=== PATIENT | female | born 1945 | race Caucasian/White ===

== ENCOUNTER 2024-07-09 15:33 | Emergency (ER) | payer MEDICARE, SELFPAY ==
--- NOTE | ~2024-07-09 | XR_ITS ---
CLINICAL HISTORY: cough, CP 2 view chest x-ray Comparison: None Findings: Heart size normal. ICD electrodes are in satisfactory position. Pulmonary vasculature is within limits of normal. No pleural fluid. No acute fracture. Impression: The lungs are clear. This document has been electronically signed by: Redd Vincent MD on 07/09/2024 17:23:48
--- NOTE | 2024-07-09 15:37 | ECG_ITS ---
Test Reason : CP Blood Pressure : */* mmHG Vent. Rate : 62 BPM Atrial Rate : 62 BPM P-R Int : * ms QRS Dur : 138 ms QT Int : 492 ms P-R-T Axes : 118 121 66 degrees QTcB Int : 499 ms Atrial-paced rhythm Abnormal ECG When compared with ECG of 23-Nov-2003 07:21, Electronic atrial pacemaker has replaced Sinus rhythm Referred By: Generic ED Physician Electronically Signed By: RIMA ROBLEDO
[2024-07-09 16:00] VITALS: BP 107/51; PULSE 66; RESP 16; TEMP 37.3; O2SAT 99; BMI 19.2
--- NOTE | 2024-07-09 16:00 | ED_ITS ---
HPI - Chest Pain General Chief Complaint: Chest Pain Stated Complaint: CP sore throat, dirfficulty breathing Time Seen by Provider: 07/09/24 19:16 Source: patient, RN notes reviewed and old records reviewed Mode of arrival: wheelchair History of Present Illness ED Provider: Mary Jane Long PA-C HPI narrative: 78-year-old female with a past medical history pacemaker, presenting to the ED complaining of chest pain, SOB, cough, headache, sore throat, myalgias x 3 days. Admits to sick contacts at home. States chest pain is nonradiating. Denies fever, chills, pedal edema, abdominal pain, nausea/vomiting Related Data Allergies Allergy/AdvReac Type Severity Reaction Status Date / Time aspirin [ASPIRIN] Allergy Unknown UNKNOWN Verified 07/09/24 16:03 Review of Systems 2 Review of Systems: Yes all other systems are reviewed and are negative Constitutional: Constitutional: Reports as per [facility] Past Medical History Attestation statement: The following information was validated with the patient. Source: old records reviewed Physical Exam 2 Vital Signs: Vital Signs: Last Vital Signs Temp 99.2 F 07/09/24 16:00 Pulse 66 07/09/24 16:00 Resp 16 07/09/24 16:00 BP 107/51 L 07/09/24 16:00 Pulse Ox 99 07/09/24 16:00 O2 Del Method Room Air 07/09/24 16:00 BMI result Body Mass Index 19.2 Const: General: cooperative, healthy appearing and no acute distress O rientation/consciousness: patient oriented x3 Limitations: no limitations HEENT: Head: Yes normal to inspection and Yes atraumatic Ears: hearing grossly normal bilaterally and external ears normal General nose exam: Normal external nose present Face and sinus: Yes normal facial exam Mouth: no drooling Throat: Yes uvula midline, No peritonsillar mass, Yes posterior oropharynx abnormal (Mild erythema), No uvula laterally displaced and No uvular edema Eyes: General: appearance normal, both eyes and all related structures EOM: EOMs intact bilaterally Neck: Neck: Yes normal visual inspection and Yes no meningeal signs Resp: Effort & Inspection: normal respiratory effort and no respiratory distress Auscultation: clear to auscultation bilaterally, no crackles, no rales, no rhonchi and no wheezes Cardio: Rate: regular rate Heart sounds: S1 normal heart sound present and S2 normal heart sound present Skin: Rashes: no rashes Wounds: no wounds Neuro: General: patient oriented x3, tone normal and no meningeal signs C ranial nerves: Yes CN's II-XII intact bilaterally Gait exam (Neuro): Normal gait present Extrem: General: Yes normal to inspection Course Course Course Narrative: This is a Rapid Medical Exam performed in triage by Mary Jane Long PA-C. Full HPI, ROS and PE to be performed by primary ED provider. 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 Non- radiating CP. + sick contact PE: Talking in complete sentences, lungs CTA. Mild posterior oropharyngeal erythema. Uvula midline. Plan: EKG, labs, SARs, CXR -1916--labs reassuring. Troponin without significant rise, mi unlikely -viral testing and rapid strep negative -CXR unremarkable Results discussed with patient including worrisome signs and symptoms and strict return precautions, and when to return to the emergency department. They verbalized understanding and feel safe for discharge at this time. Medical Decision Making Medical Decision Making [facility] Narrative: 78-year-old female with a past medical history pacemaker, presenting to the ED complaining of chest pain, SOB, cough, headache, sore throat, myalgias x 3 days. On exam vital signs stable, NAD, nontoxic appearing, lungs CTA, talking in complete sentences, mild posterior oropharyngeal erythema, uvula midline. Talking in complete sentences. Concern for viral illness vs ACS vs pneumonia vs bronchitis. Low suspicion for PE/CHF Plan: EKG, labs, viral testing, CXR Please refer to course for remaining clinical decision making, interpretation of labs/imaging results, and discussions with consultants and/or family members. Differential Diagnosis Differential Diagnoses: The differential diagnosis associated with the presentation includes As above Admission/Observation Consideration of admission/observation: Escalation of care including admission/observation considered Lab Data [facility] Lab Attestation statement: I reviewed the patient's lab results. 07/09/24 16:25 07/09/24 16:25 Labs: Lab Results 07/09/24 07/09/24 07/09/24 Range/Units 16:25 16:26 18:43 WBC 5.1 (4.8-10.8) X10*3/uL RBC 3.58 L (4.20-5.50) X10*6/uL Hgb 10.3 L (12.0-16.0) g/dl Hct 30.1 L (37.0-47.0) % MCV 84.1 (80.0-98.0) fL MCH 28.8 (27.0-33.0) pg MCHC 34.2 (31.0-35.0) g/dl RDW 12.6 (11.0-16.0) % Plt Count 139 L (160-400) X10*3/uL MPV 10.0 (9.4-12.3) fL Immature Gran % (Auto) 0.2 (0.0-0.4) % Neut % (Auto) 86.1 H (45-73) % Lymph % (Auto) 9.2 L (20-40) % Holmes % (Auto) 4.1 (2-11) % Eos % (Auto) 0.2 (0-4) % Baso % (Auto) 0.2 (0-2) % Lymph # (Auto) 0.5 L (1.2-4.9) X10*3/uL Holmes # (Auto) 0.2 (0.1-1.2) X10*3/uL Eos # (Auto) 0.0 (0.0-0.4) X10*3/uL Baso # (Auto) 0.0 (0.0-0.2) X10*3/uL Abs Immat Gran (auto) 0.01 (0.00-0.03) X10*3/uL Absolute Neuts (auto) 4.4 (2.0-8.3) x10*3/uL Absolute Nucleated RBC 0.000 (0.0-0.012) X10*3/uL Nucleated RBC % (auto) 0.0 (0.0-0.2) /100WBC Sodium 133 L (135-145) mmol/L Potassium 4.8 (3.3-5.1) mmol/L Chloride 98 (96-108) mmol/L Carbon Dioxide 27 (22-29) mmol/L Anion Gap 13 (12-20) BUN 21 H (9-16) mg/dL Creatinine 0.83 (0.5-1.4) mg/dL Estim Creat Clear Calc 43.4 Estimated GFR > 60 Random Glucose 284 H (60-115) mg/dL Calcium 9.2 (8.4-10.2) mg/dL Troponin I High Sens 11.4 10.7 (<3.5-17.0) ng/L Influenza Type A (PCR) NEGATIVE (Negative) Influenza Type B (PCR) NEGATIVE (Negative) RSV RNA Qual (PCR) NEGATIVE (Negative) SARS-CoV-2 RNA (RT-PCR) NEGATIVE (Negative) S. pyogenes GrpA SHEILA Negative (Negative) Independent Interpretation I performed an independent interpretation of an: EKG (My interpretation EKG ventricular paced at a rate of 62. QRS 138. No STEMI. ) and Plain X-Ray Radiology Impression Discussion of test interpretation with radiology: I have reviewed the radiologist's reading. Independent Historian Clinical information obtained from an independent historian. History obtained from or confirmed by: Other External Record Review External record reviewed: Inpatient record, Office record, Outpatient record, Prior outpatient labs, Prior outpatient radiology, Primary care record and Outside ED record Tests considered The following testing was considered but not selected: As above Prescription Management I considered prescription management with: Antibiotic Chronic Conditions Patient?s care impacted by: Other Social Determinants Patient?s care significantly limited by Social Determinants of Health including: Other Social Determinant of Health Discharge Plan Discharge Clinical Impression: Acute viral syndrome Patient Disposition: Home, Self-Care Instructions: Viral Syndrome (ED) Additional Instructions: You have a virus Your blood work, x-ray, and viral testing is reassuring Have close follow-up with your doctor No antibiotics are indicated at this time Make sure you are staying hydrated. Drink plenty of fluids. Rest Alternate Tylenol and Motrin at home as needed for body aches and fever Follow-up with your doctor. If symptoms persist or worsen return to the emergency department *If you are a child & not tolerating liquid or urinating for more than 6 hours, or fevers are uncontrolled with medications at home, return to the emergency department* Referrals: Physician,Unknown J [Primary Care Provider] - 5 days Print Language: Macedonian
[2024-07-09 16:33] LABS: MANUAL DIFF FLAG NO
[2024-07-09 16:36] LABS: Basophils Percent Auto 0.2 % (0-2); Eosinophils Percent Auto 0.2 % (0-4); Hematocrit 30.1 % (37.0-47.0); Hemoglobin 10.3 g/dl (12.0-16.0); Imm Gran Abs Auto 0.01 X10*3/uL (0.00-0.03); Imm Gran Pct Auto 0.2 % (0.0-0.4); Lymphocytes Absolute Auto 0.5 X10*3/uL (1.2-4.9); Lymphocytes Percent Auto 9.2 % (20-40); Mean Corpuscular HGB Conc 34.2 g/dl (31.0-35.0); Mean Corpuscular Hemoglobin 28.8 pg (27.0-33.0); Mean Corpuscular Volume 84.1 fL (80.0-98.0); Monocytes Absolute Auto 0.2 X10*3/uL (0.1-1.2); Monocytes Percent Auto 4.1 % (2-11); Neutrophils Absolute Auto 4.4 x10*3/uL (2.0-8.3); Neutrophils Percent Auto 86.1 % (45-73); Platelet Count 139 X10*3/uL (160-400); Red Blood Count 3.58 X10*6/uL (4.20-5.50); Red Cell Distribution Width 12.6 % (11.0-16.0); White Blood Count 5.1 X10*3/uL (4.8-10.8)
[2024-07-09 16:43] LABS: IDNOW Serial# 55D5AD1C
[2024-07-09 16:44] LABS: Strep A Nucleic Acid Negative (Negative)
[2024-07-09 16:47] LABS: Anion Gap 13 (12-20); Blood Urea Nitrogen 21 mg/dL (9-16); Calcium 9.2 mg/dL (8.4-10.2); Carbon Dioxide 27 mmol/L (22-29); Chloride 98 mmol/L (96-108); Creatinine Clr Calc Pharmacy 43.4; Estimated Glomerular Filt Rate > 60; Glucose Random 284 mg/dL (60-115); Potassium 4.8 mmol/L (3.3-5.1); Sodium 133 mmol/L (135-145)
[2024-07-09 16:55] LABS: Troponin-I High Sensitivity 11.4 ng/L (<3.5-17.0)
[2024-07-09 17:15] LABS: Influenza A PCR NEGATIVE (Negative); Influenza B PCR NEGATIVE (Negative); Resp Syncy Virus RNA Qual PCR NEGATIVE (Negative); SARS COV2 PCR INHOUSE NEGATIVE (Negative)
[2024-07-09 19:09] LABS: Troponin-I High Sensitivity 10.7 ng/L (<3.5-17.0)
[2024-07-09 19:27] VITALS: BP 152/55; PULSE 65; RESP 17; TEMP 36.8; O2SAT 100
== END 2024-07-09 19:28 | disposition home or self-care (01) ==
PROVIDERS: Physician Assistant; Emergency Provider Emergency Medicine Emergency Medical Services
DX: B34.9 Viral infection, unspecified (principal); R07.9 Chest pain, unspecified; R06.02 Shortness of breath; R05.9 Cough, unspecified; J02.9 Acute pharyngitis, unspecified; Z03.818 Encounter for observation for suspected exposure to other biological agents ruled out
CPT/HCPCS: 0241U; 36415; 71046; 80048; 84484; 85025; 87651; 93005; 99283

== ENCOUNTER → 2024-07-09 15:37 | Outpatient (BNV) | payer MEDICARE, SELFPAY | PROVIDERS: Emergency Provider Emergency Medicine Emergency Medical Services; Visit Provider Internal Medicine | DX: R07.9 Chest pain, unspecified (principal); R94.31 Abnormal electrocardiogram [ECG] [EKG] | CPT/HCPCS: 93010 ==

== ENCOUNTER → 2024-07-09 16:04 | Outpatient (BNV) | payer MEDICARE, SELFPAY | PROVIDERS: Visit Provider Radiology Diagnostic Radiology | DX: R05.9 Cough, unspecified (principal); R07.9 Chest pain, unspecified | CPT/HCPCS: 71046 ==